=== PATIENT | male | born 1980 | race Two or more races ===

== ENCOUNTER 2021-05-20 21:38 | Emergency (ER) | payer MEDICAID ==
[~2021-05-20] VITALS: Ht 170.2 cm; Wt 138.0 kg
[~2021-05-20 21:38] MED LIST: AMLO10TA80 PO
[2021-05-20 23:07] VITALS: BP 168/105
[2021-05-21] MEDS ORDERED: ACETAMINOPHEN 500MG TABLET PO ONE (00:15)
[2021-05-21] MEDS ORDERED: NAPR-681 MT (01:43)
[2021-05-21] MEDS ORDERED: TRAM50TA94 MT (01:43)
== END 2021-05-21 01:58 | disposition home or self-care (01) ==
LOC: ER 21:38
DX: S09.8XXA Other specified injuries of head, initial encounter (principal); I10 Essential (primary) hypertension; F41.9 Anxiety disorder, unspecified; F32.9 Major depressive disorder, single episode, unspecified; V43.92XA Unspecified car occupant injured in collision with other type car in traffic accident, initial encounter; Y93.9 Activity, unspecified; Y92.410 Unspecified street and highway as the place of occurrence of the external cause
CPT/HCPCS: 72040; 99284

== ENCOUNTER 2022-09-02 13:11 | Emergency (ER) | payer MEDICAID ==
[~2022-09-02] VITALS: Ht 170.2 cm; Wt 145.0 kg
[~2022-09-02 13:11] MED LIST changes: +NAPR-681 MT; +TRAM50TA94 MT
[2022-09-02] MEDS ORDERED: KETOROLAC 30MG/ML VIAL IM ONE (16:15)
[2022-09-02 16:22] VITALS: BP 123/82
[2022-09-02] MEDS ORDERED: IBUP-2029 MT (18:09)
== END 2022-09-02 18:29 | disposition home or self-care (01) ==
LOC: ER 13:19
DX: S20.212A Contusion of left front wall of thorax, initial encounter (principal); I10 Essential (primary) hypertension; F41.9 Anxiety disorder, unspecified; F32.9 Major depressive disorder, single episode, unspecified; V43.52XA Car driver injured in collision with other type car in traffic accident, initial encounter; Y93.89 Activity, other specified; Y92.410 Unspecified street and highway as the place of occurrence of the external cause
CPT/HCPCS: 71101; 96372; 99283; J1885

== ENCOUNTER 2024-02-12 01:16 | Emergency (ER) | payer MEDICAID ==
[~2024-02-12] VITALS: Ht 167.6 cm; Wt 132.0 kg
[~2024-02-12 01:16] MED LIST changes: +IBUP-2029 MT
[2024-02-12 01:19] VITALS: O2SAT 96
[2024-02-12 02:02] LABS: BASOPHILS % 0.8 % (0.0-2.0); EOSINOPHILS % 1.5 % (0.0-5.0); HEMATOCRIT. 44.9 % (42.0-52.0); HEMOGLOBIN. 15.5 g/dL (14.0-18.0); LYMPHOCYTES % 26.7 % (20.0-50.0); MEAN CORPUSCULAR HEMOGLOBIN 29.5 pg (28.0-32.0); MEAN CORPUSCULAR HGB CONC 34.5 g/dL (31.0-37.0); MEAN CORPUSCULAR VOLUME 85.8 fL (80.0-94.0); MEAN PLATELET VOLUME 7.6 fl (7.4-10.4); MONOCYTES % 4.9 % (2.0-8.0); NEUTROPHILS % 66.1 % (40.0-76.0); PLATELET 277 x1000/uL (130-400); RED BLOOD CELL COUNT 5.24 mill/uL (4.7-6.1); RED CELL DISTRIBUTION WIDTH 13.6 % (11.6-14.6); WHITE BLOOD COUNT 7.2 x1000/uL (4.5-11.0)
[2024-02-12 02:11] LABS: CHLORIDE 102 mEq/L (98-107); POTASSIUM 3.4 mEq/L (3.5-5.1); SODIUM 136 mEq/L (136-145)
[2024-02-12 02:12] LABS: CALCIUM 9.1 mg/dL (8.7-10.4); CARBON DIOXIDE 22 mEq/L (21-32)
[2024-02-12 02:15] LABS: CLARITY URINE CLEAR (CLEAR); COLOR URINE YELLOW (YELLOW); GLUCOSE URINE NEGATIVE (NEGATIVE); KETONES URINE NEGATIVE (NEGATIVE); LEUKOCYTE ESTERASE URINE NEGATIVE (NEGATIVE); NITRITE URINE NEGATIVE (NEGATIVE); OCCULT BLOOD URINE NEGATIVE (NEGATIVE); PROTEIN URINE NEGATIVE (NEGATIVE); SPECIFIC GRAVITY URINE 1.009 (1.005-1.030); UROBILINOGEN URINE 0.2 E.U./dL (0.2-1.0)
[2024-02-12 02:17] LABS: GLUCOSE 226 mg/dL (70-105); UREA NITROGEN BLOOD 13 mg/dL (9-23)
[2024-02-12 02:18] LABS: TROPONIN I HIGH SENSITIVITY 10 ng/L (3.0-53)
[2024-02-12] MEDS: SODIUM CHLORIDE 0.9% 1,000 ML IV NR (04:26)
[2024-02-12 04:46] LABS: *AMPHETAMINES SCREEN URINE PRESUMPTIVE POSITIVE (NEGATIVE); *BARBITURATES SCREEN URINE NEGATIVE (NEGATIVE); *BENZODIAZEPINES SCREEN URINE NEGATIVE (NEGATIVE); *COCAINE SCREEN URINE NEGATIVE (NEGATIVE); CANNABINOID URINE SCREEN NEGATIVE (NEGATIVE); ECSTASY MDMA SCREEN URINE NEGATIVE (NEGATIVE); METHADONE URINE SCREEN NEGATIVE (NEGATIVE); OPIATES URINE SCREEN NEGATIVE (NEGATIVE); PHENCYCLIDINE URINE SCREEN NEGATIVE (NEGATIVE)
[2024-02-12 05:18] LABS: TROPONIN I HIGH SENSITIVITY 11 ng/L (3.0-53)
[2024-02-12] MEDS ORDERED: IOHEXOL-350 100 ML BOTTLE ONE (05:23)
[2024-02-12 06:25] VITALS: BP 114/74; PULSE 75; RESP 16; TEMP 98
== END 2024-02-12 06:50 | disposition home or self-care (01) ==
LOC: ER 01:16
DX: R00.2 Palpitations (principal); F15.90 Other stimulant use, unspecified, uncomplicated; F41.9 Anxiety disorder, unspecified; F32.A Depression, unspecified; I10 Essential (primary) hypertension; Z98.890 Other specified postprocedural states
CPT/HCPCS: 80305; 80048; 81003; 80320; 83880; 85025; 85379; 84484; 36415; 71045; 71275; 93005; 99285; Q9967; Z7610 ×2; G0480

== ENCOUNTER 2025-03-13 09:02 | Emergency (ER) | payer MEDICAID ==
[~2025-03-13] VITALS: Ht 170.2 cm; Wt 131.0 kg
[2025-03-13 09:06] VITALS: O2SAT 98
[2025-03-13] MEDS ORDERED: CLONIDINE 0.2MG TABLET PO ONE (10:00)
[2025-03-13 10:17] LABS: CLARITY URINE CLOUDY (CLEAR); COLOR URINE DARK YELLOW (YELLOW); GLUCOSE URINE NEGATIVE (NEGATIVE); KETONES URINE TRACE (NEGATIVE); LEUKOCYTE ESTERASE URINE NEGATIVE (NEGATIVE); NITRITE URINE NEGATIVE (NEGATIVE); OCCULT BLOOD URINE NEGATIVE (NEGATIVE); PH URINE 5.5 (4.5-8.0); PROTEIN URINE 1+ (NEGATIVE); SPECIFIC GRAVITY URINE 1.033 (1.005-1.030)
[2025-03-13] MEDS: CLONIDINE 0.1MG TABLET PO SCH (10:39)
[2025-03-13 11:00] LABS: FINE GRANULAR CASTS URINE 0-5 /lpf; HYALINE CASTS URINE 0-5 /lpf
[2025-03-13 11:01] LABS: *AMPHETAMINES SCREEN URINE PRESUMPTIVE POSITIVE (NEGATIVE); RBC URINE NONE SEEN /hpf (0-2); SQUAMOUS EPITHELIAL CELL URINE RARE /lpf (RARE/1+)
[2025-03-13 11:02] LABS: *BARBITURATES SCREEN URINE NEGATIVE (NEGATIVE); *BENZODIAZEPINES SCREEN URINE NEGATIVE (NEGATIVE); *COCAINE SCREEN URINE NEGATIVE (NEGATIVE); BACTERIA URINE 1+; CANNABINOID URINE SCREEN NEGATIVE (NEGATIVE); ECSTASY MDMA SCREEN URINE NEGATIVE (NEGATIVE); METHADONE URINE SCREEN NEGATIVE (NEGATIVE); MUCUS URINE 3+ /lpf (NONE/TRACE); OPIATES URINE SCREEN NEGATIVE (NEGATIVE); PHENCYCLIDINE URINE SCREEN NEGATIVE (NEGATIVE)
[2025-03-13 11:03] LABS: WHITE BLOOD CELL CASTS URINE 0-5 /lpf
[2025-03-13 11:21] LABS: CHLORIDE 104 mEq/L (98-107); POTASSIUM 4.1 mEq/L (3.5-5.1); SODIUM 139 mEq/L (136-145)
[2025-03-13 11:22] LABS: CARBON DIOXIDE 20 mEq/L (21-32)
[2025-03-13 11:23] LABS: CALCIUM 9.5 mg/dL (8.7-10.4)
[2025-03-13 11:27] LABS: GLUCOSE 129 mg/dL (70-105); UREA NITROGEN BLOOD 21 mg/dL (9-23)
[2025-03-13 11:28] LABS: ETHANOL BLOOD < 10 mg/dL (<10); TROPONIN I HIGH SENSITIVITY 10 ng/L (3.0-53)
[2025-03-13 12:03] LABS: BASOPHILS % 0.6 % (0.0-2.0); EOSINOPHILS % 1.8 % (0.0-5.0); HEMATOCRIT. 47.7 % (42.0-52.0); HEMOGLOBIN. 15.9 g/dL (14.0-18.0); MEAN CORPUSCULAR HEMOGLOBIN 29.2 pg (28.0-32.0); MEAN CORPUSCULAR HGB CONC 33.4 g/dL (31.0-37.0); MEAN CORPUSCULAR VOLUME 87.6 fL (80.0-94.0); MONOCYTES % 8.1 % (2.0-8.0); NEUTROPHILS % 74.5 % (40.0-76.0); PLATELET 365 x1000/uL (130-400); RED BLOOD CELL COUNT 5.45 mill/uL (4.7-6.1); RED CELL DISTRIBUTION WIDTH 14.1 % (11.6-14.6); WHITE BLOOD COUNT 10.8 x1000/uL (4.5-11.0)
[2025-03-13 12:09] LABS: INR 1.1; PROTHROMBIN TIME 11.4 sec (9.6-11.0)
[2025-03-13 12:43] LABS: TROPONIN I HIGH SENSITIVITY 8 ng/L (3.0-53)
[2025-03-13] MEDS: NITROFURANTOIN 100MG M/M CAPSULE PO SCH (12:44)
[2025-03-13] MEDS ORDERED: AMLO5TAB88 MT (13:16)
[2025-03-13] MEDS ORDERED: NITR-87 MT (13:20)
[2025-03-13 13:45] VITALS: BP 156/94; PULSE 95; RESP 14; TEMP 36.9; O2SAT 95
== END 2025-03-13 14:00 | disposition home or self-care (01) ==
LOC: ER 09:02
DX: I10 Essential (primary) hypertension (principal); R55 Syncope and collapse; N39.0 Urinary tract infection, site not specified; E11.9 Type 2 diabetes mellitus without complications; F41.9 Anxiety disorder, unspecified; Z79.899 Other long term (current) drug therapy; Z98.890 Other specified postprocedural states
CPT/HCPCS: 36415; 71045; 80048; 80305; 80320; 81003; 82962; 84484; 85025; 93005; 99285; G0480